=== PATIENT | female | born 1995 | race Caucasian/White ===

== ENCOUNTER 2021-12-20 18:33 | Emergency (ER) | payer SELFPAY ==
[~2021-12-20] VITALS: Ht 160 cm; Wt 72.7 kg
[2021-12-20 22:00] VITALS: BP 118/73
[2021-12-20] MEDS ORDERED: IBUPROFEN 600 MG TABLET PO ONE (22:15)
== END 2021-12-20 22:25 | disposition home or self-care (01) ==
LOC: EMS 18:36
DX: S46.001A Unspecified injury of muscle(s) and tendon(s) of the rotator cuff of right shoulder, initial encounter (principal); F17.210 Nicotine dependence, cigarettes, uncomplicated; X50.0XXA Overexertion from strenuous movement or load, initial encounter; Y93.89 Activity, other specified; Y92.89 Other specified places as the place of occurrence of the external cause; Y99.8 Other external cause status
CPT/HCPCS: 99283